=== PATIENT | female | born 1975 | race Caucasian/White ===

== ENCOUNTER → 2017-03-13 | Outpatient (CLI) | payer OTHER | LOC: BMCIMAGING 08:32 | DX: Z12.31 Encounter for screening mammogram for malignant neoplasm of breast (principal) | CPT/HCPCS: G0202 ==

== ENCOUNTER → 2017-03-18 | Outpatient (CLI) | payer OTHER | LOC: BMCIMAGING 13:23 | DX: R92.8 Other abnormal and inconclusive findings on diagnostic imaging of breast (principal); N64.4 Mastodynia | CPT/HCPCS: G0206 ==

== ENCOUNTER → 2017-10-11 | Outpatient (CLI) | payer OTHER | LOC: BMCIMAGING 17:53 | PROVIDERS: ATTEND Emergency Medicine | DX: R05 Cough (principal) ==

== ENCOUNTER → 2017-11-25 | Outpatient (CLI) | payer OTHER | LOC: FIMAGING 13:52 | PROVIDERS: ATTEND Registered Nurse General Practice | DX: Z12.31 Encounter for screening mammogram for malignant neoplasm of breast (principal) ==

== ENCOUNTER → 2018-05-14 | Outpatient (CLI) | payer OTHER ==
[~2018-05-14] MED LIST: IOPAMIDOL (ISOVUE-300) 100 ML BTL ONE
== END ==
LOC: FIMAGING 13:06
PROVIDERS: ATTEND Physician Assistant Medical
DX: K59.00 Constipation, unspecified (principal); K43.9 Ventral hernia without obstruction or gangrene; N80.9 Endometriosis, unspecified; Z90.710 Acquired absence of both cervix and uterus; Z90.79 Acquired absence of other genital organ(s)
CPT/HCPCS: Q9967

== ENCOUNTER 2018-05-16 13:05 | Emergency (ER) | payer OTHER ==
--- NOTE | 2018-05-16 13:57 | EDPHY ---
General - History Smoking Status: Never smoked Time Seen by Provider: 05/16/18 13:45 Narrative: CHIEF COMPLAINT: Abdominal pain HISTORY OF PRESENT ILLNESS: Patient presents with complaints of abdominal pain. She reports periumbilical abdominal pain that has been worsening over the past 2 days. She has had this in the past, but no where near severe as the past 2 days. She states that is worse with palpation, movement or pressure on the abdomen. Nausea but no vomiting. No constipation or diarrhea. She is 6 weeks postop from hysterectomy due to chronic endometriosis in pain. This was done in [facility]. She had evaluation for abdominal pain [address] scan of the abdomen pelvis where her consulting business developer with report of abdominal wall hernia. She has no formal follow-up for this yet. She is here today because the pain is significantly worsened and she cannot tolerate wearing pants with. No fever. No other associated complaints or modifying factors. REVIEW OF SYSTEMS: Ten systems reviewed and are negative unless otherwise noted in the HPI PCP: Dr. Alejandra Del Toro SPECIALISTS: Network Management Specialist Dr. Potts PAST MEDICAL HISTORY: Fibromyalgia, endometriosis, study from chronic hip pain PAST SURGICAL HISTORY: Hysterectomy 6 weeks ago at [facility] SOCIAL HISTORY: Nonsmoker. Lives here independently with her spouse and child FAMILY HISTORY: Noncontributory EXAMINATION General Appearance: Alert, no distress. Well-developed well-nourished. Head: normocephalic, atraumatic Eyes: Pupils equal and round, no conjunctival pallor or injection ENT, Mouth: Mucous membranes moist Neck: Normal inspection, supple, non-tender Respiratory: Lungs are clear to auscultation Cardiovascular: Regular rate and rhythm Gastrointestinal: Abdomen is soft and nondistended. There are laparoscopic incisions that are healing well with no signs of dehiscence or infection. There is tenderness of the periumbilical region with no firmness, ecchymosis or guarding. Neurological: A&O, nonfocal, normal gait Skin: Warm and dry, no rash. No petechiae or purpura. Surgical incisions as above that are clean dry and intact Extremities: Nontender, no pedal edema Psychiatric: Mood and affect normal DIFFERENTIAL DIAGNOSES: Including but not limited to incarcerated hernia, strangulated hernia, periumbilical hernia, colitis, pelvic abscess, intra-abdominal abscess MDM: 1:50 p.m. Periumbilical abdominal pain worsening for the past 2 days, 6 weeks postop from hysterectomy due to endometriosis. I reviewed the patient's laboratory studies and imaging from 2 days ago, and there is a periumbilical hernia. Abdominal exam does reveal periumbilical tenderness, which I do not feel correlates to her descriptive level of pain. I do feel this is a nonsurgical abdomen. She is in no acute distress with vital signs stable. No vomiting. No constipation. I will discuss with Dr. Sam Prado. 2:[address] Prado has evaluated the patient. Please see his note. He is ordered ultrasound of the pelvis and Tylenol. We will cancel laboratory studies that I had ordered. 3:40 p.m. Ultrasound has been read as normal appearance post hysterectomy with no acute findings. I discussed this with the patient. She was ambulating in the room when I did so. She has minimal complaints of pain at this time. We discussed discharge home with pain medication, warm compresses and follow up with general surgeon for evaluation of hernia repair. We discussed ED precautions for intractable pain, fever, vomiting or constipation. We also discussed follow-up with her consulting business developer regarding her lower abdominal pain that has been improving. She is comfortable this plan discharged home stable condition. SUPERVISION: Patient was evaluated and examined in conjunction with my secondary supervising physician as documented. We have both examined the patient. (Corby Gomez) Medical Decision Making: PHYSICIAN DOCUMENTATION: The patient was evaluated and managed by the Physician Manager [employer] and myself. I have reviewed the chart and agree with the findings and plan of care as documented. In addition, I examined the patient myself at 1400. History confirmed as left lower quadrant abdominal pain for the past 1.5 days. Physical findings as follows: She does not have any umbilical mass or tenderness. I do not feel a firm incarcerated hernia. She has a little bit of left lower quadrant abdominal tenderness but no rebound or guarding. No fever and no vomiting. CT scan from 2 days ago report reviewed personally. No evidence of postoperative complication, does have periumbilical hernia. I think it is unlikely to be incarcerated or strangulated today. Plan for pelvic ultrasound, oral acetaminophen. I am the secondary supervising physician. (Sam Prado) - Diagnostics Imaging Results: Imaging Impressions Pelvic/Renal Ultrasound 05/16/18 14:15 Impression: Normal post hysterectomy pelvic ultrasound. Specifically no ovarian cysts or evidence for endometrioma. - Objective Vital Signs: Initial Vital Signs Temperature (C) 36.8 C 05/16/18 13:12 Heart Rate 90 05/16/18 13:12 Respiratory Rate 18 05/16/18 13:12 Blood Pressure 151/95 H 05/16/18 13:12 O2 Sat (%) 96 05/16/18 13:12 O2 Delivery Mode Room Air Allergies/Adverse Reactions: juniper tar Allergy (Verified 05/16/18 13:09) walnut Allergy (Verified 05/16/18 13:09) Home Medications: Medication Instructions Recorded ALPRAZolam [Xanax 1 MG (*)] 0.8 each PO HS PRN 02/23/18 Cholecalciferol Vit D3 [Vitamin D3 1,000 units PO DAILY 02/23/18 (*)] Fluticasone Nasal [Flonase Nasal 1 sprays NASAL DAILY PRN 02/23/18 [place] (RX)] Herbals/Supplements -Info Only 1 ea PO DAILY 02/23/18 Ibuprofen [Motrin (*)] 200 mg PO DAILY PRN 02/23/18 Melatonin [Melatonin 3 MG (*)] 3 mg PO HS PRN 02/23/18 Multivitamins [Multivitamin (*)] 1 each PO DAILY 02/23/18 Vitamin B Complex [Vitamin B 1 each PO DAILY 02/23/18 Complex (OTC)] ZOLPIDEM TARTRATE [Ambien CR 12.5 6.25 mg PO HS PRN 02/23/18 mg] Ondansetron Odt [Zofran Odt 4 mg 4 mg PO Q6 PRN #12 tab 05/16/18 (*)] Progesterone 05/16/18 oxyCODONE HCL/ACETAMINOPHEN 1 each PO Q4-6PRN PRN #7 tablet 05/16/18 [Percocet 5-325 mg Tablet] Laboratory Results: 05/16/18 14:55 Urine Color YELLOW Urine Appearance CLEAR Urine pH 5.0 (5.0-7.5) Ur Specific [place] 1.008 (1.002-1.030) Urine Protein NEGATIVE (NEGATIVE) Urine Ketones NEGATIVE (NEGATIVE) Urine Blood 1+ H (NEGATIVE) Urine Nitrate NEGATIVE (NEGATIVE) Urine Bilirubin NEGATIVE (NEGATIVE) Urine Urobilinogen NEGATIVE EU EU (0.2-1.0) Ur Leukocyte Esterase NEGATIVE (NEGATIVE) Urine RBC 10-15 /hpf H /hpf (0-3) Urine WBC 1-3 /hpf /hpf (0-3) Ur Epithelial Cells TRACE /lpf /lpf (NONE-1+) Urine Mucus TRACE /lpf /lpf (NONE-1+) Urine Glucose NEGATIVE (NEGATIVE) Medications Given: Discontinued Medications Acetaminophen (Tylenol) 650 mg PO EDNOW ONE Stop: 05/16/18 14:16 Last Admin: 05/16/18 14:37 Dose: 650 mg Departure - Departure Disposition: Home, Routine, Self-Care Clinical Impression: Periumbilical hernia Condition: Good Instructions: Umbilical Hernia (ED), Umbilical Hernia Repair (DC) Additional Instructions: 1. Contact the on-call general surgeon for outpatient care and evaluation of your hernia 2. Contact her primary care physician to discussed the outpatient follow up with general surgeon 3. No lifting anything greater than 10 lb until seen by general surgeon 4. ED precautions for intractable pain, fever, vomiting, difficulty with bowel movements Referrals: Alejandra Del Toro MD [Primary Care Provider] - As per Instructions Cameron Keane MD [Medical Doctor] - As per Instructions Prescriptions: Ondansetron Odt [Zofran Odt 4 mg (*)] 4 mg PO Q6 PRN #12 tab PRN Reason: Nausea/Vomiting, Use 1st oxyCODONE HCL/ACETAMINOPHEN [Percocet 5-325 mg Tablet] 1 each PO Q4-6PRN PRN #7 tablet PRN Reason: Pain, Breakthrough
[2018-05-16] MEDS ORDERED: ACETAMINOPHEN 325 MG TAB PO ONE (14:15)
[2018-05-16 16:16] VITALS: BP 128/78
== END 2018-05-16 16:16 | disposition home or self-care (01) ==
DX: K42.9 Umbilical hernia without obstruction or gangrene (principal); Z90.710 Acquired absence of both cervix and uterus

== ENCOUNTER 2018-05-25 10:57 | Day surgery (SDC) | payer OTHER ==
[2018-05-25] MEDS ORDERED: BUPIVACAINE 0.25% 30 ML SDV ONE (10:59)
[2018-05-25] MEDS ORDERED: ceFAZolin 2 GM/DEXTROSE 100 ML IV ONE (11:10)
[2018-05-25] MEDS ORDERED: LR 1,000 ML IV ONE (11:10)
[2018-05-25] MEDS ORDERED: LIDOCAINE 1% 2 ML INJ ID PRN (11:10)
--- NOTE | 2018-05-25 11:38 | PDHPUP ---
History & Physical Update H&P update statement: This history and physical update is based on an assessment of the patient which was completed after admission or registration (within 24 hours), but prior to the surgery/procedure. H&P update: H&P reviewed & patient examined, no change in patient's condition since H&P completed
[2018-05-25] MEDS ORDERED: MIDAZOLAM 2 MG/2 ML VIAL IVP ONE (11:59)
--- NOTE | 2018-05-25 12:00 | PDANEPAE ---
ANE History of Present Illness Umbilical hernia repair ANE Past Medical History - Cardiovascular History Hx Arrhythmias: Yes - Pulmonary History Hx Oxygen in Use at Home: No Hx Sleep Apnea: Yes - Neurologic History Neurologic History Comment: stutter - Endocrine History Hx Diabetes: No ANE Review of Systems Review of systems is: negative Review of Systems: - Exercise capacity METS (RN): 4 METS ANE Patient History - Allergies Allergies/Adverse Reactions: juniper tar Allergy (Verified 05/16/18 13:09) walnut Allergy (Verified 05/16/18 13:09) - Home Medications Home medications: home medication list seen and reviewed Home Medications: ALPRAZolam [Xanax 1 MG (*)] 0.8 each PO HS PRN 02/23/18 [Last Taken 05/18/18] Cholecalciferol Vit D3 [Vitamin D3 (*)] 1,000 units PO DAILY 02/23/18 [Last Taken 05/23/18] Fluticasone Nasal [Flonase Nasal [place] (RX)] 1 sprays NASAL DAILY PRN 02/23/18 [ Last Taken 05/24/18] Herbals/Supplements -Info Only 1 ea PO DAILY 02/23/18 [Last Taken 05/23/18] Ibuprofen [Motrin (*)] 200 mg PO DAILY PRN 02/23/18 [Last Taken 05/24/18 20:00] Melatonin [Melatonin 3 MG (*)] 3 mg PO HS PRN 02/23/18 [Last Taken 05/11/18] Multivitamins [Multivitamin (*)] 1 each PO DAILY 02/23/18 [Last Taken 05/23/18] Vitamin B Complex [Vitamin B Complex (OTC)] 1 each PO DAILY 02/23/18 [Last Taken 05/23/18] ZOLPIDEM TARTRATE [Ambien CR 12.5 mg] 6.25 mg PO HS PRN 02/23/18 [Last Taken 07/04] Progesterone 05/16/18 [Last Taken 05/22/18] Acetaminophen Extra Strength 05/25/18 [Last Taken 05/24/18] Milk of Magnesia 05/25/18 [Last Taken 05/24/18] Senna 05/25/18 [Last Taken 05/24/18] - NPO status NPO Status: no food or drink >8 hours NPO Since - Liquids (Date): 05/24/18 NPO Since - Liquids (Time): 23:00 NPO Since - Solids (Date): 05/24/18 NPO Since - Solids (Time): 22:00 - Smoking Hx Smoking Status: Never smoked ANE Labs/Vital Signs - Vital Signs Vital Signs: reviewed preoperatively; see RN documention for details Blood Pressure: 123/82 Heart Rate: 62 Respiratory Rate: 12 O2 Sat (%): 95 Height: 156.21 cm Weight: 65.771 kg ANE Physical Exam - Airway Neck exam: FROM Mallampati Score: Class 1 Mouth exam: normal dental/mouth exam - Pulmonary Pulmonary: no respiratory distress - Cardiovascular Cardiovascular: regular rate and rhythym - ASA Status ASA Status: II ANE Anesthesia Plan Total IV Anesthesia: Yes
[2018-05-25] MEDS ORDERED: PROPOFOL/EMULSION 500 MG/50 ML BOTTLE IV ONE (12:28)
[2018-05-25] MEDS ORDERED: DEXAMETHASONE 4 MG/ML VIAL ONE (12:36)
[2018-05-25] MEDS ORDERED: LIDOCAINE 2% 100 MG/5 ML SYR ONE (12:36)
[2018-05-25] MEDS ORDERED: ONDANSETRON 4 MG/2 ML VIAL ONE (12:36)
[2018-05-25] MEDS ORDERED: NALOXONE HCL 0.4 MG/ML INJ IVP PRN (12:52)
[2018-05-25] MEDS ORDERED: ONDANSETRON 4 MG/2 ML VIAL IVP PRN (12:52)
[2018-05-25] MEDS ORDERED: fentaNYL 100 MCG/2 ML INJ IVP PRN (12:52)
[2018-05-25] MEDS ORDERED: oxyCODONE IR 5 MG TAB PO PRN (12:52)
[2018-05-25] MEDS ORDERED: HYDROmorphONE/DILAUDID 1 MG/ML INJ IVP PRN (12:52)
[2018-05-25] MEDS ORDERED: MEPERIDINE 25 MG/0.5 ML AMP IVP PRN (12:52)
[2018-05-25] MEDS ORDERED: DEXAMETHASONE 4 MG/ML VIAL IVP PRN (12:52)
[2018-05-25] MEDS ORDERED: PROMETHAZINE HCL 25 MG/ML INJ IVP PRN (12:52)
[2018-05-25] MEDS ORDERED: ACETAMINOPHEN 500 MG TAB PO PRN (12:52)
--- NOTE | 2018-05-25 12:55 | POSTANESTH ---
Post Anesthetic Evaluation Cardiovascular Status: Normal, Stable, Similar to Pre-Op Cond Respiratory Status: Normal, Stable, Similar to Pre-op Cond. Level of Consciousness/Mental Status: Can Participate in Eval, Mildly Sleepy, Arousable Pain Control: Adequate, Prn Tx Ordered Nausea/Vomiting Control: Adequate, Prn Tx Ordered Complications Possibly Related to Anesthesia: None Noted
--- NOTE | 2018-05-25 13:03 | POSTOPPROG ---
Post Op Note Date of Operation: 05/25/18 Surgeon: Cameron Keane Anesthesiologist: Wendy Anesthesia: GET(General Endotracheal) Pre-op Diagnosis: Umbilical hernia Post-op Diagnosis: same Procedure: open primary umbilical hernia repair Findings: small 3mm defect Inf/Abcess present in the surg proc area at time of surgery?: No EBL: Minimal
[2018-05-25] MEDS ORDERED: fentaNYL 100 MCG/2 ML INJ ONE (13:36)
[2018-05-25] MEDS ORDERED: HYDROCODONE/APAP 5/325 TAB ONE ×2 (13:40→14:32)
[2018-05-25] MEDS: HYDROCODONE/APAP 5/325 TAB PO PRN ×2 (13:48→14:35)
[2018-05-25 14:07] VITALS: BP 117/80
--- NOTE | 2018-06-11 12:48 | GOP ---
[f rep st] OPERATIVE REPORT DATE OF OPERATION: 05/25/2018 SURGEON: Cameron Keane MD AIR CONTROL/ANTI AIR WARFARE OFFICER: None. ANESTHESIA: General endotracheal. ANESTHESIOLOGIST: Nolberto Nguyen MD PREOPERATIVE DIAGNOSIS: Symptomatic umbilical hernia. POSTOPERATIVE DIAGNOSIS: Symptomatic umbilical hernia. PROCEDURE PERFORMED: Open primary umbilical hernia repair. FINDINGS: Small 3 mm defect repaired with interrupted braided nylon sutures, noting excellent fascia l reapproximation. SPECIMENS: None. ESTIMATED BLOOD LOSS: 5 cc. DESCRIPTION OF PROCEDURE: The patient was greeted in the preoperative suite. Once again, risks, sesar efits, and alternatives were discussed. Consent was signed. She was then brought back to the operat valerie suite, placed on the OR table in supine position. After all anesthesia machines including SCDs w ere on and functioning, World Health Organization time-out was performed. After successful induction of general anesthesia, the patient's abdomen was prepped and draped in typical sterile fashion. I c ommenced the procedure by making a curvilinear incision inferior to the umbilicus and carrying it kumar n to the subcutaneous tissue. The umbilical stalk was then amputated from the underlying hernia sac and raised up. The hernia sac was successfully skeletonized and reduced. The hernia defect measured approximately 3 mm in greatest dimension. The fascial edges were then cleansed. It was not big manpreet ugh for a mesh placement. The defect was then reapproximated with multiple interrupted braided 0 nyl on sutures, noting excellent fascial reapproximation. Local anesthesia was used throughout to create a field block. The umbilical stalk was then reapproximated to the underlying fascia with an interru pted Vicryl stitch, the subcutaneous tissue closed with interrupted Vicryl stitches, and the skin wit h running 4-0 Monocryl. Dermabond was placed. The patient was then extubated in the operative suite and taken to the PACU in satisfactory condition. DRAINS: None. COUNTS: All counts were reported as correct x2. /[id number]/MODL
== END 2018-05-25 14:45 | disposition home or self-care (01) ==
LOC: FSGY 10:57
PROVIDERS: ATTEND Surgery
PROC: 0WQF0ZZ Repair Abdominal Wall, Open Approach (ICD-10-PCS; principal; 2018-05-25 12:15)
DX: K42.9 Umbilical hernia without obstruction or gangrene (principal)
CPT/HCPCS: J0690; J1100; J2001; J2250; J2405; J2704; J3010

== ENCOUNTER 2018-10-21 12:09 | Emergency (ER) | payer OTHER ==
--- NOTE | 2018-10-21 12:27 | EDPHY ---
H & P Stated Complaint: L shoulder pain worse with moving and nausea x Time Seen by Provider: 10/21/18 12:24 HPI/ROS: CHIEF COMPLAINT: Left shoulder pain and nausea HISTORY OF PRESENT ILLNESS: The patient presents the ED with complaints of left shoulder pain and nausea. The patient has a complicated past medical history with fibromyalgia and chronic abdominal pain. She did have surgery for umbilical hernia in May of this year. The patient did have abdominal imaging performed earlier this year as well which demonstrated no significant abnormalities. The patient tells me that she did see her chiropractor yesterday. Sometime in the evening she developed left shoulder pain and nausea. She was concerned about the possibility of a heart attack which prompted her visit to the emergency department today. The patient denies any acute abdominal pain currently. Her nausea has resolved. The patient has no risk factors for coronary artery disease. REVIEW OF SYSTEMS: A comprehensive 10 point review of systems is otherwise negative aside from elements mentioned in the history of present illness. Source: Patient Exam Limitations: No limitations - Personal History LMP (Females 10-55): Unknown - Medical/Surgical History Hx Asthma: No Hx Chronic Respiratory Disease: No Hx Diabetes: No Hx Cardiac Disease: No Hx Renal Disease: No Hx Cirrhosis: No Hx Alcoholism: No Hx HIV/AIDS: No Hx Splenectomy or Spleen Trauma: No Other PMH: Hysterectomy, Endometriosis, chronic pain - Social History Smoking Status: Never smoked - Physical Exam Exam: General Appearance: Alert, no distress Eyes: Pupils equal and round no pallor or injection ENT, Mouth: Mucous membranes moist Respiratory: There are no retractions, lungs are clear to auscultation Cardiovascular: Regular rate and rhythm Gastrointestinal: Abdomen is soft and nontender, no masses, bowel sounds normal Neurological: 5/5 strength noted all 4 extremities Skin: Warm and dry, no rashes Musculoskeletal: Neck is supple nontender Extremities: symmetrical, full range of motion Psychiatric: Patient is oriented X 3, there is no agitation Constitutional: Initial Vital Signs Temperature (C) 36.7 C 10/21/18 12:14 Heart Rate 77 10/21/18 12:14 Respiratory Rate 16 10/21/18 12:14 Blood Pressure 115/79 10/21/18 12:14 O2 Sat (%) 97 10/21/18 12:14 O2 Delivery Mode Room Air Allergies/Adverse Reactions: juniper tar Allergy (Verified 05/16/18 13:09) walnut Allergy (Verified 05/16/18 13:09) Home Medications: Medication Instructions Recorded Ambien 10/21/18 Ibuprofen 10/21/18 Progesterone 10/21/18 Medical Decision Making - Diagnostics EKG Interpretation: EKG: Complete interpretation has been separately recorded in the [facility] archive. Summary impression: Sinus rhythm, rate 74 ED Course/Re-evaluation: The patient presents to the ED with vague shoulder pain and nausea. She has no risk factors for coronary artery disease. The patient's EKG demonstrates no evidence of ischemia and her troponin is normal. The patient is also been struggling with chronic abdominal distension. I find her abdominal examination to be benign. The patient is in no acute distress. Laboratory testing is unremarkable. She has had a CT scan of the abdomen and pelvis this year which was unremarkable. I do not feel that further workup is indicated. The patient will be discharged to follow up with her regular primary care provider. Differential Diagnosis: Differential diagnosis considered includes esophageal spasm, acute coronary syndrome, dehydration, hepatitis, renal failure - Data Points Laboratory Results: Laboratory Results 10/21/18 13:06 10/21/18 10/21/18 13:06 13:06 WBC 6.42 10^3/uL 10^3/uL (3.80-9.50) RBC 4.48 10^6/uL 10^6/uL (4.18-5.33) Hgb 14.1 g/dL g/dL (12.6-16.3) Hct 41.7 % % (38.0-47.0) MCV 93.1 fL fL (81.5-99.8) MCH 31.5 pg pg (27.9-34.1) MCHC 33.8 g/dL g/dL (32.4-36.7) RDW 12.5 % % (11.5-15.2) Plt Count 201 10^3/uL 10^3/uL (150-400) MPV 9.6 fL fL (8.7-11.7) Neut % (Auto) 82.4 % H % (39.3-74.2) Lymph % (Auto) 10.6 % L % (15.0-45.0) [place] % (Auto) 4.8 % % (4.5-13.0) Eos % (Auto) 2.0 % % (0.6-7.6) Baso % (Auto) 0.0 % L % (0.3-1.7) Nucleat RBC Rel Count 0.0 % % (0.0-0.2) Absolute Neuts (auto) 5.29 10^3/uL 10^3/uL (1.70-6.50) Absolute Lymphs (auto) 0.68 10^3/uL L 10^3/uL (1.00-3.00) Absolute Monos (auto) 0.31 10^3/uL 10^3/uL (0.30-0.80) Absolute Eos (auto) 0.13 10^3/uL 10^3/uL (0.03-0.40) Absolute Basos (auto) 0.00 10^3/uL L 10^3/uL (0.02-0.10) Absolute Nucleated RBC 0.00 10^3/uL 10^3/uL (0-0.01) Immature Gran % 0.2 % % (0.0-1.1) Immature Gran # 0.01 10^3/uL 10^3/uL (0.00-0.10) Sodium Pending Potassium Pending Chloride Pending Carbon Dioxide Pending Anion Gap Pending BUN Pending Creatinine Pending Estimated GFR Pending Glucose Pending Calcium Pending Total Bilirubin Pending Conjugated Bilirubin Pending Unconjugated Bilirubin Pending AST Pending ALT Pending Alkaline Phosphatase Pending Troponin I Pending Total Protein Pending Albumin Pending Lipase Pending Departure - Departure Disposition: Home, Routine, Self-Care Clinical Impression: Nausea, Bloating Condition: Good Instructions: Acute Nausea and Vomiting (ED) Additional Instructions: 1. The testing in the emergency department today demonstrates no significant abnormality. 2. I do recommend you continue to work with your primary care provider for ongoing management and evaluation of your chronic abdominal pain and distension. 3. Please return to the ED for markedly worsening symptoms or other concerns. Referrals: Alejandra Del Toro MD [Primary Care Provider] - As per Instructions
[2018-10-21 13:17] LABS: PLATELET COUNT 201 10^3/uL (150-400)
--- NOTE | 2018-10-21 13:40 | CPEKG ---
Test Reason : OPEN Blood Pressure : / mmHG Vent. Rate : 074 BPM Atrial Rate : 073 BPM P-R Int : 135 ms QRS Dur : 087 ms QT Int : 374 ms P-R-T Axes : 065 074 020 degrees QTc Int : 415 ms Sinus rhythm Confirmed by Royer Murray ([id number]) on 10/21/2018 1:39:52 PM Referred By: Confirmed By:Royer Murray
[2018-10-21 14:13] VITALS: BP 113/74
== END 2018-10-21 14:13 | disposition home or self-care (01) ==
DX: R11.0 Nausea (principal); R14.0 Abdominal distension (gaseous); M25.512 Pain in left shoulder; R10.9 Unspecified abdominal pain; G89.29 Other chronic pain; M79.7 Fibromyalgia
CPT/HCPCS: 84484-PO

== ENCOUNTER → 2018-12-08 | Outpatient (CLI) | payer OTHER | LOC: FIMAGING 09:25 | PROVIDERS: ATTEND Internal Medicine | DX: Z12.31 Encounter for screening mammogram for malignant neoplasm of breast (principal) ==

== ENCOUNTER → 2019-01-29 | Outpatient (CLI) | payer OTHER | LOC: FIMAGING 09:50 → EDSTATUS 09:51 | PROVIDERS: ATTEND Family Medicine | DX: S93.401A Sprain of unspecified ligament of right ankle, initial encounter (principal) ==

== ENCOUNTER 2019-03-12 20:29 | Emergency (ER) | payer OTHER ==
--- NOTE | 2019-03-12 20:59 | EDPHY ---
H & P Stated Complaint: TINGELING ALL OVER FOR 3 DAYS, THIBNKS SOMETHING HAPPENED ON WED Time Seen by Provider: 03/12/19 20:58 - Personal History LMP (Females 10-55): Hysterectomy Current Tetanus/Diphtheria Vaccine: Unsure Current Tetanus Diphtheria and Acellular Pertussis (TDAP): Unsure - Medical/Surgical History Hx Asthma: No Hx Chronic Respiratory Disease: No Hx Diabetes: No Hx Cardiac Disease: No Hx Renal Disease: No Hx Cirrhosis: No Hx Alcoholism: No Hx HIV/AIDS: No Hx Splenectomy or Spleen Trauma: No Other PMH: Hysterectomy, Endometriosis, chronic pain - Social History Smoking Status: Never smoked Constitutional: Initial Vital Signs Temperature (C) 37.0 C 03/12/19 20:37 Heart Rate 77 03/12/19 20:37 Respiratory Rate 18 03/12/19 20:37 Blood Pressure 177/87 H 03/12/19 20:37 O2 Sat (%) 94 03/12/19 20:37 O2 Delivery Mode Room Air Allergies/Adverse Reactions: walnut Allergy (Verified 03/12/19 20:41) SOME ANTIBIOTIC Allergy (Uncoded 03/12/19 20:41) Home Medications: Medication Instructions Recorded Ambien 10/21/18 Ibuprofen 10/21/18 Progesterone 10/21/18 ALPRAZolam [Xanax 0.25 MG (*)] 0.25 mg PO HS 03/12/19 Medical Decision Making - Diagnostics Imaging Results: Imaging Impressions Brain MRI 03/12/19 21:10 Impression: There are 4 white matter lesions identified, with the leading differential differential consideration of MS. Other possibilities would include foci of microvascular ischemic gliosis, or old posttraumatic or postinflammatory changes. Recommendation: Neurologic consultation, and follow-up MR imaging in 6 months is suggested, unless otherwise clinically indicated. Findings were discussed with Aneudy Lind MD at 22:21, on 03/12/2019. Imaging: Discussed imaging studies w/ call center professional Radiologist, I viewed and interpreted images myself ED Course/Re-evaluation: CHIEF COMPLAINT: "tingling all over" HISTORY OF PRESENT ILLNESS: The patient is a 43 y/o female with a history of chronic pain complaining of a tingling sensation "all over", onset 3 days ago. On Friday she had a "sudden feeling that something happened in my brain as if something came down a shoot". She then developed full body tingling accompanied with some confusion and feeling off balance. Yesterday morning she woke up feeling like her "calves were jello". Today she drank wine and thought it tasted like crayons. She called her PCP's nurse and was advised to present to the emergency department. Now her left hand feels funny and weak with a slight bit of "not real pain". No fever, headache, body aches, lightheadedness, chest pain, heart palpitations, shortness of breath, cough, abdominal pain, urinary or bowel complaints, numbness, paresthesias. REVIEW OF SYSTEMS: A comprehensive 10 system review of systems is otherwise negative aside from elements mentioned in the history of present illness and medical decision making. PHYSICAL EXAM: HR, BP, O2 Sat, RR. Temp noted General Appearance: Alert, well hydrated, appropriate, and non-toxic appearing. Head: Atraumatic without scalp tenderness or obvious injury Eyes: Pupils equal, round, reactive to light and accommodation, EOMI, no trauma , no injection. Ears: Clear bilaterally, no perforation, normal landmarks Nose: Atraumatic, no rhinorrhea, clear. Throat: There is no erythema or exudates, no lesions, normal tonsils, mucus membranes moist. Neck: Supple, 2+ carotid upstroke, nontender, no lymphadenopathy. Respiratory: No retractions, no distress, no wheezes, and no accessory muscle use. Lungs are clear to auscultation bilaterally. Cardiovascular: Regular rate and rhythm, no murmurs, rubs, or gallops. Bilateral carotid, radial, dorsalis pedis, and posterior tibial pulses intact. Good capillary refill all extremities. Gastrointestinal: Abdomen is soft, nontender, non-distended, no masses, no rebound, no guarding, no peritoneal signs. Musculoskeletal: Normal active ROM of all extremities, atraumatic. Neurological: Alert, appropriate, and interactive. The patient has normal DTRs and non-focal cranial nerves, motor, sensory, and cerebellar exam. Skin: No rashes, good turgor, no nodules on palpation. Past medical history: Chronic pain, endometriosis Past surgical history: Hysterectomy Family history: Denies Social history: Single, lives in [place], employed DIAGNOSTICS/PROCEDURES/CRITICAL CARE TIME: Brain MRI: 3 or 4 white matter lesions, not diagnostic, could indicate MS. DIFFERENTIAL DIAGNOSIS: The differential diagnosis for the patient's neurologic deficits included but was not limited to peripheral causes, central causes including CVA, TIA, electrolyte abnormalities and dehydration, cardiogenic causes, atypical causes like migraine syndrome. MEDICAL DECISION MAKING: fThe patient is a 43 y/o female with a history of chronic pain presenting with a tingling sensation "all over", onset 3 days ago. On Friday she had a "sudden feeling that something happened in my brain as if something came down a shoot". Today she drank wine and thought it tasted like crayons. She called her PCP's nurse and was advised to present to the emergency department. 2224: I spoke with Dr. Steen, radiologist, regarding patient's brain MRI. There are 3 or 4 white matter lesions, not diagnostic, that could indicate MS. She will need to follow up with a neurologist. 2226: Reassessed patient and discussed imaging findings. I have advised her to follow up with a neurologist regarding the MRI findings. Return precautions provided; patient is comfortable with tis plan. - Data Points Laboratory Results: Laboratory Results 03/12/19 21:21 03/12/19 21:21 03/12/19 03/12/19 21:21 21:21 WBC 7.26 10^3/uL 10^3/uL (3.80-9.50) RBC 4.64 10^6/uL 10^6/uL (4.18-5.33) Hgb 14.3 g/dL g/dL (12.6-16.3) Hct 41.5 % % (38.0-47.0) MCV 89.4 fL fL (81.5-99.8) MCH 30.8 pg pg (27.9-34.1) MCHC 34.5 g/dL g/dL (32.4-36.7) RDW 12.8 % % (11.5-15.2) Plt Count 267 10^3/uL 10^3/uL (150-400) MPV 10.0 fL fL (8.7-11.7) Neut % (Auto) 60.9 % % (39.3-74.2) Lymph % (Auto) 31.0 % % (15.0-45.0) Butler % (Auto) 5.2 % % (4.5-13.0) Eos % (Auto) 2.5 % % (0.6-7.6) Baso % (Auto) 0.1 % L % (0.3-1.7) Nucleat RBC Rel Count 0.0 % % (0.0-0.2) Absolute Neuts (auto) 4.42 10^3/uL 10^3/uL (1.70-6.50) Absolute Lymphs (auto) 2.25 10^3/uL 10^3/uL (1.00-3.00) Absolute Monos (auto) 0.38 10^3/uL 10^3/uL (0.30-0.80) Absolute Eos (auto) 0.18 10^3/uL 10^3/uL (0.03-0.40) Absolute Basos (auto) 0.01 10^3/uL L 10^3/uL (0.02-0.10) Absolute Nucleated RBC 0.00 10^3/uL 10^3/uL (0-0.01) Immature Gran % 0.3 % % (0.0-1.1) Immature Gran # 0.02 10^3/uL 10^3/uL (0.00-0.10) Sodium 136 mEq/L mEq/L (135-145) Potassium 4.1 mEq/L mEq/L (3.5-5.2) Chloride 106 mEq/L mEq/L (97-110) Carbon Dioxide 21 mEq/l L mEq/l (22-31) Anion Gap 9 mEq/L mEq/L (6-14) BUN 14 mg/dL mg/dL (7-23) Creatinine 0.8 mg/dL mg/dL (0.6-1.0) Estimated GFR > 60 Glucose 106 mg/dL H mg/dL (70-100) Calcium 9.9 mg/dL mg/dL (8.5-10.4) Departure - Departure Disposition: Home, Routine, Self-Care Clinical Impression: Chronic non-specific white matter lesions on MRI Condition: Good Instructions: Multiple Sclerosis (DC), Paresthesia (ED) Additional Instructions: 1. There are several non-specific white matter lesions that could indicate MS. 2. Follow-up with a neurologist within the next week. 3. Return to the Emergency Department for severe headache, vomiting, vision changes, confusion, fever or other concerns. Referrals: Alejandra Del Toro MD [Primary Care Provider] - As per Instructions Francisco Cox DO [Medical Doctor] - As per Instructions Report Scribed for: Aneudy Lind Report Scribed by: Demi Aldana Date of Report: 03/12/19 Time of Report: 21:00
[2019-03-12 21:29] LABS: PLATELET COUNT 267 10^3/uL (150-400)
[2019-03-12 23:03] VITALS: BP 118/78
== END 2019-03-12 22:50 | disposition home or self-care (01) ==
DX: R90.82 White matter disease, unspecified (principal); R20.2 Paresthesia of skin
CPT/HCPCS: 70551-PN

== ENCOUNTER → 2019-03-25 | Outpatient (CLI) | payer OTHER ==
[~2019-03-25] MED LIST changes: +GADOBUTROL 10 ML VIAL IVP ONE; -IOPAMIDOL (ISOVUE-300) 100 ML BTL ONE; +LIDOCAINE 1% 300 MG/30 ML SDV ONE; +LIDOCAINE/PRILOCAINE 1 EACH CRTUBE TP ONE
[2019-03-25 09:16] LABS: INR 0.94 (0.83-1.16); PROTIME(PATIENT) 12.2 SEC (12.0-15.0)
== END ==
LOC: FIMAGING 07:40
PROVIDERS: ATTEND Psychiatry & Neurology Neurology
DX: R20.2 Paresthesia of skin (principal); R90.82 White matter disease, unspecified; M50.322 Other cervical disc degeneration at C5-C6 level
CPT/HCPCS: 82784-90; A9585

== ENCOUNTER 2019-03-30 10:17 | Day surgery (SDC) | payer OTHER ==
[2019-03-30] MEDS ORDERED: IOPAMIDOL (ISOVUE-M 300) 15 ML VIAL ONE (10:49)
== END 2019-03-30 12:20 | disposition home or self-care (01) ==
LOC: FIMAGING 10:17
PROVIDERS: ATTEND Radiology Vascular & Interventional Radiology
PROC: 3E0S3GC Introduction of Other Therapeutic Substance into Epidural Space, Percutaneous Approach (ICD-10-PCS; principal; 2019-03-30)
DX: G97.1 Other reaction to spinal and lumbar puncture (principal)
CPT/HCPCS: Q9967